=== PATIENT | male | born 1985 | race African-American/Black ===

== ENCOUNTER 2020-11-14 18:54 | Emergency (ER) | payer SELFPAY ==
[~2020-11-14] VITALS: Ht 180.3 cm; Wt 82.5 kg
[2020-11-14] MEDS ORDERED: FAMOTIDINE 20 MG (PEPCID) TABLET PO STA (19:27)
--- NOTE | 2020-11-14 19:28 | ED Cough/URI ---
General Stated Complaint: CHILLS/VOMITING/BODY ACHES/HEADACHE Source: patient Exam Limitations: no limitations History of Present Illness Date Seen by Provider: Nov 14, 2020 Time Seen by Provider: 19:15 Initial Comments Patient arrives ER by private conveyance chief complaint of about 1 to 2 days progressively worsening fever T-max of 102, chills, cough productive of brown sputum, nausea and vomiting. No diarrhea. Epigastric abdominal discomfort. No history of abdominal surgeries. No sick contacts or recent travel outside the [facility]. He did not get Covid vaccination. Patient states he smokes an occasional cigarette in about 3 joints of cannabis daily. He does not use alcohol or any recreational drugs otherwise. Allergies and Home Medications Allergies Coded Allergies: No Known Drug Allergies (Unverified , 11/14/20) Patient Home Medication List Home Medication List Reviewed: Yes Review of Systems Review of Systems Constitutional: chills, fever, malaise EENTM: No ear discharge, No ear pain Respiratory: cough, phlegm, short of breath Cardiovascular: No chest pain, No edema, No palpitations Gastrointestinal: No abdominal pain; nausea, vomiting Genitourinary: No discharge, No dysuria Musculoskeletal: No back pain, No joint pain All Other Systems Reviewed Negative Unless Noted: Yes Past Jeysvvd-Qzhdie-Htuenm Hx Patient Social History Alcohol Use: Denies Use Drug of Choice: Cannabis Smoking Status: Current Someday Smoker Type Used: Cigarettes Physical Exam Vital Signs - First Documented 11/14/20 19:15 Temp 37.6 Pulse 92 Resp 18 B/P (MAP) 144/95 (111) Pulse Ox 100 Capillary Refill : Height: '" Weight: lbs. oz. kg; BMI Method: General Appearance: WD/WN, mild distress (Chilling) Eyes: Bilateral Eye Normal Inspection, Bilateral Eye PERRL, Bilateral Eye EOMI HEENT: PERRL/EOMI Neck: full range of motion, normal inspection Respiratory: lungs clear, normal breath sounds, no respiratory distress (Oxygen saturation 100% on room air, nonlabored breathing 20 breaths/min), no accessory muscle use Cardiovascular: normal peripheral pulses, regular rate, rhythm Gastrointestinal: normal bowel sounds, non tender, soft Extremities: normal range of motion, non-tender, normal capillary refill Neurologic/Psychiatric: alert, normal mood/affect, oriented x 3 Skin: normal color, warm/dry Progress/Results/Core Measures Suspected Sepsis SIRS Temperature: Pulse: Respiratory Rate: Laboratory Tests 11/14/20 19:25: White Blood Count 12.1H Blood Pressure / Mean: Laboratory Tests 11/14/20 19:25: Creatinine 0.84, Platelet Count 193, Total Bilirubin 0.6 Results/Orders Lab Results Laboratory Tests Test 11/14/20 19:25 Range/Units White Blood Count 12.1 H 4.3-11.0 10^3/uL Red Blood Count 6.18 H 4.30-5.52 10^6/uL Hemoglobin 15.4 13.3-17.7 g/dL Hematocrit 46 40-54 % Mean Corpuscular Volume 75 L 80-99 fL Mean Corpuscular Hemoglobin 25 25-34 pg Mean Corpuscular Hemoglobin Concent 33 32-36 g/dL Red Cell Distribution Width 17.9 H 10.0-14.5 % Platelet Count 193 130-400 10^3/uL Mean Platelet Volume 9.0-12.2 fL Immature Granulocyte % (Auto) 0 % Neutrophils (%) (Auto) 72 42-75 % Lymphocytes (%) (Auto) 17 12-44 % Monocytes (%) (Auto) 9 0-12 % Eosinophils (%) (Auto) 1 0-10 % Basophils (%) (Auto) 1 0-10 % Neutrophils # (Auto) 8.7 H 1.8-7.8 10^3/uL Lymphocytes # (Auto) 2.0 1.0-4.0 10^3/uL Monocytes # (Auto) 1.1 H 0.0-1.0 10^3/uL Eosinophils # (Auto) 0.2 0.0-0.3 10^3/uL Basophils # (Auto) 0.1 0.0-0.1 10^3/uL Immature Granulocyte # (Auto) 0.1 0.0-0.1 10^3/uL Sodium Level 138 135-145 MMOL/L Potassium Level 4.2 3.6-5.0 MMOL/L Chloride Level 102 98-107 MMOL/L Carbon Dioxide Level 22 21-32 MMOL/L Anion Gap 14 5-14 MMOL/L Blood Urea Nitrogen 6 L 7-18 MG/DL Creatinine 0.84 0.60-1.30 MG/DL Estimat Glomerular Filtration Rate > 60 BUN/Creatinine Ratio 7 Glucose Level 89 70-105 MG/DL Calcium Level 9.2 8.5-10.1 MG/DL Corrected Calcium 8.9 8.5-10.1 MG/DL Total Bilirubin 0.6 0.1-1.0 MG/DL Aspartate Amino Transf (AST/SGOT) 44 H 5-34 U/L Alanine Aminotransferase (ALT/SGPT) 98 H 0-55 U/L Alkaline Phosphatase 109 40-136 U/L C-Reactive Protein High Sensitivity 0.99 H 0.00-0.50 MG/DL Total Protein 8.0 6.4-8.2 GM/DL Albumin 4.4 3.2-4.5 GM/DL Lipase 19 8-78 U/L Coronavirus 2019 (MELLISA) Negative Not Detecte Micro Results Microbiology 11/14/20 Influenza Types A,B Antigen (KATRINA) - Final, Complete My Orders Orders - RUBY DUFFY Cbc With Automated Diff (11/14/20 19:26) Comprehensive Metabolic Panel (11/14/20 19:) Hs C Reactive Protein (11/14/20 19:) Lipase (11/14/20 19:26) Chest 1 View, Ap/Pa Only (11/14/20 19:26) Blood Culture (11/14/20 19:26) Ed Iv/Invasive Line Start (11/14/20 19:27) Lactated Ringers (Lr 1000 Ml Iv Solution (11/14/20 19:30) Ondansetron Injection (Zofran Injectio (11/14/20 19:30) Lidocaine 2% Viscous 15 Ml (Xylocaine Vi (11/14/20 19:30) Famotidine Tablet (Pepcid Tablet) (11/14/20 19:27) Antacid Suspension (Mylanta Suspension (11/14/20 19:30) Acetaminophen Tablet (Tylenol Tablet) (11/14/20 19:30) Covid 19 Inhouse Test (11/14/20 19:29) Influenza A And B Antigens (11/14/20 19:29) Medications Given in ED Current Medications Medications Dose Ordered Sig/Ronal Route Start Time Stop Time Status Last Admin Dose Admin Acetaminophen 1,000 mg ONCE ONCE PO 11/14/20 19:30 11/14/20 19:31 DC 11/14/20 19:51 1,000 MG Al Hydrox/Mg Hydrox/Simethicone 30 ml ONCE ONCE PO 11/14/20 19:30 11/14/20 19:31 DC 11/14/20 19:50 30 ML Lactated Ringer's 1,000 ml @ 0 mls/hr Q0M ONCE IV 11/14/20 19:30 11/14/20 19:31 DC 11/14/20 19:50 1,000 MLS/HR Lidocaine HCl 15 ml ONCE ONCE PO 11/14/20 19:30 11/14/20 19:31 DC 11/14/20 19:51 15 ML Ondansetron HCl 8 mg ONCE ONCE IVP 11/14/20 19:30 11/14/20 19:31 DC 11/14/20 19:50 8 MG Vital Signs/I&O 11/14/20 11/14/20 19:15 19:51 Temp 37.6 38.0 Pulse 92 Resp 18 B/P (MAP) 144/95 (111) Pulse Ox 100 Capillary Refill : Progress Note #1: Time: 19:31 Progress Note Although his temperature is 99.5 he has a stated history of fever and heart rate in the 90s. This would be sepsis however I suspect a viral etiology considering it is involving upper respiratory, lungs and nausea vomiting/GI tract. Plan to give him some Zofran, IV fluids, get some basic labs including blood cultures and a chest x-ray. We will swab him for COVID-19 and influenza since we had some influenza earlier in the week. After the Zofran will give him a GI cocktail to help him with epigastric pain which I suspect is related to his vomiting. Progress Note #2: Time: 20:48 Progress Note On reexamination his vitals are still fine and his labs are fine. Will allow him to finish his IV fluids and put him out on azithromycin for atypical bacterial pneumonia. Viral still leads in terms of most likely on the differential. Will encourage him to use some Tylenol, Motrin and Zofran for his symptoms. Diagnostic Imaging Diagonstic Imaging: Xray Plain Films/CT/US/NM/MRI: chest Comments [facility]. [place], [place] NAME: NASH OTERO [facility] REC#: [id number] PT STATUS: REG ER : 1985 PHYSICIAN: RUBY DUFFY MD ADMIT DATE: 11/14/20/ER Signed Date of Exam:11/14/20 CHEST 1 VIEW, AP/PA ONLY EXAMINATION: Chest 1 view. HISTORY: Shortness of breath. Fever and cough. COMPARISON: None available. FINDINGS: The lung volumes are normal. No focal consolidation is seen. No large pleural effusion or pneumothorax is seen. The cardiomediastinal silhouette is normal in size and contour. No acute osseous abnormality is seen. IMPRESSION: No acute pleuroparenchymal process. Dictated by: Dictated on workstation # [id number] Dict: 11/14/202013 Trans: 11/14/202017 [id number] Interpreted by: MARY MCDANIEL DO Electronically signed by: MARY MCDANIEL DO 11/14/202017 Reviewed: Reviewed by Me Departure Impression Primary Impression: Primary atypical pneumonia Additional Impression: Gastroenteritis and colitis, viral Disposition: 01 HOME, SELF-CARE Condition: Stable Departure-Patient Inst. Decision time for Depature: 20:55 Referrals: NO,LOCAL PHYSICIAN (PCP/Family) Primary Care Physician Patient Instructions: Pneumonia, Adult ED, Viral Gastroenteritis, Adult (DC) Add. Discharge Instructions: I suspect most likely a virus is causing your symptoms and your body just needs time to fight it off. Your goal is to not become dehydrated in that time. It is also possible you may have atypical bacterial pneumonia so were going to put you on azithromycin. 1 tablet every day starting tomorrow for the next 4 days. The medicine will hang out for several days afterwards in your system. If you are having diarrhea after 24 hours it is okay to take 2 tablets of Imodium/loperamide followed by 1 tablet every 4 hours afterwards that you are still having loose, watery stools. If you are having fever, body aches or chills then you should use Tylenol/acetaminophen 1000 mg every 8 hours as necessary and ibuprofen/Motrin 800 mg every 8 hours as necessary. Vapor rubs such as Vicks or Mentholatum may be helpful for symptoms. Ondansetron/Zofran 1 tablet every 6 hours under the tongue as necessary for nausea or vomiting. Drink lots of fluids. Sports drinks are encouraged. Return to the ER promptly if you are having worsening symptoms such as dehydration or difficulty breathing. Follow-up with your primary care team if your symptoms or not improving in the next 7 to 10 days. Scripts Loperamide HCl (Imodium A-D) 2 Mg Capsule 2 MG PO Q4H PRN for DIARRHEA, #20 CAP 0 Refills Prov: RUBY DUFFY 11/14/20 Azithromycin (Azithromycin) 250 Mg Tablet 250 MG PO DAILY, #4 TAB 0 Refills Prov: RUBY DUFFY 11/14/20 Ondansetron (Ondansetron Odt) 4 Mg Tab.rapdis 4 MG PO Q6H PRN for NAUSEA/VOMITING, #12 TAB 0 Refills Prov: RUBY DUFFY 11/14/20 Work/School Note: Work Release Form Date Seen in the Emergency Department: Nov 14, 2020 Return to Work: Nov 18, 2020 Restrictions: No Restrictions RUBY DUFFY Nov 14, 2020 19:28
[2020-11-14] MEDS ORDERED: LACTATED RINGERS 1,000 ML IV ONE (19:30)
[2020-11-14] MEDS ORDERED: LIDOCAINE 2% VISCOUS 15 ML UDC PO ONE (19:30)
[2020-11-14] MEDS ORDERED: ACETAMINOPHEN 500 MG TAB (TYLENOL) PO ONE (19:30)
[2020-11-14] MEDS ORDERED: ONDANSETRON 4 MG/2 ML (SDV) Z0FRAN IVP ONE (19:30)
[2020-11-14] MEDS ORDERED: ANTACID SUSP 30 ML UDC (MYLANTA) PO ONE (19:30)
[2020-11-14 20:04] LABS: BASOPHILS # (AUTO) 0.1 10^3/uL (0.0-0.1); BASOPHILS % (AUTO) 1 % (0-10)
[2020-11-14 20:06] LABS: EOSINOPHILS # (AUTO) 0.2 10^3/uL (0.0-0.3); EOSINOPHILS % (AUTO) 1 % (0-10); HEMATOCRIT 46 % (40-54); HEMOGLOBIN 15.4 g/dL (13.3-17.7); LYMPHOCYTES % (AUTO) 17 % (12-44); MEAN CORPUSCULAR HEMOGLOBIN 25 pg (25-34); MEAN CORPUSCULAR HGB CONC 33 g/dL (32-36); MEAN CORPUSCULAR VOLUME 75 fL (80-99); MONOCYTES # (AUTO) 1.1 10^3/uL (0.0-1.0); MONOCYTES % (AUTO) 9 % (0-12); NEUTROPHILS # (AUTO) 8.7 10^3/uL (1.8-7.8); NEUTROPHILS % (AUTO) 72 % (42-75); PLATELET COUNT 193 10^3/uL (130-400); WHITE BLOOD COUNT 12.1 10^3/uL (4.3-11.0)
[2020-11-14 20:09] LABS: ALBUMIN 4.4 GM/DL (3.2-4.5)
[2020-11-14 20:10] LABS: CHLORIDE 102 MMOL/L (98-107); POTASSIUM 4.2 MMOL/L (3.6-5.0); SODIUM 138 MMOL/L (135-145)
[2020-11-14 20:11] LABS: CALCIUM 9.2 MG/DL (8.5-10.1)
[2020-11-14 20:12] LABS: GLUCOSE 89 MG/DL (70-105)
[2020-11-14 20:13] LABS: CARBON DIOXIDE 22 MMOL/L (21-32)
[2020-11-14 20:14] LABS: BILIRUBIN,TOTAL 0.6 MG/DL (0.1-1.0)
[2020-11-14 20:15] LABS: ALKALINE PHOSPHATASE 109 U/L (40-136)
[2020-11-14 20:16] LABS: CREATININE SERUM 0.84 MG/DL (0.60-1.30); GFR ESTIMATED > 60
--- NOTE | 2020-11-14 20:16 | Diagnostic Imaging Report ---
EXAMINATION: Chest 1 view. HISTORY: Shortness of breath. Fever and cough. COMPARISON: None available. FINDINGS: The lung volumes are normal. No focal consolidation is seen. No large pleural effusion or pneumothorax is seen. The cardiomediastinal silhouette is normal in size and contour. No acute osseous abnormality is seen. IMPRESSION: No acute pleuroparenchymal process. Dictated by: Dictated on workstation # [id number]
[2020-11-14 20:17] LABS: BUN/CREATININE RATIO 7
[2020-11-14 20:19] LABS: ALANINE AMINOTRANSFERASE 98 U/L (0-55); LIPASE 19 U/L (8-78)
[2020-11-14] MEDS ORDERED: RX-ONDANSETRON 4 MG ODT (ZOFRAN) PPK #4 PO STA (20:54)
[2020-11-14] MEDS ORDERED: LOPE-175 PO (20:59)
[2020-11-14] MEDS ORDERED: ONDA4TAB11 PO (20:59)
[2020-11-14] MEDS ORDERED: AZIT250T12 PO (20:59)
[2020-11-14] MEDS ORDERED: RX-LOPERAMIDE 2 MG (IMODIUM) CAP PPK#4 PO ONE (21:00)
[2020-11-14] MEDS ORDERED: AZITHROMYCIN 250 MG TAB (ZITHROMAX) PO ONE (21:00)
[2020-11-14 21:11] VITALS: BP 115/62
== END 2020-11-14 21:15 | disposition home or self-care (01) ==
LOC: ER 19:02
DX: J18.9 Pneumonia, unspecified organism (principal); A08.4 Viral intestinal infection, unspecified; F17.210 Nicotine dependence, cigarettes, uncomplicated; Z20.822 Contact with and (suspected) exposure to COVID-19
CPT/HCPCS: 71045; 80053; 83690; 85025; 86141; 87040; 87804; 99284; U0002; 36415; 87635

== ENCOUNTER 2021-11-26 18:38 | Emergency (ER) | payer SELFPAY ==
[~2021-11-26] VITALS: Ht 178 cm; Wt 80.7 kg
[~2021-11-26 18:38] MED LIST: AZIT250T12 PO; LOPE-175 PO; ONDA4TAB11 PO
[2021-11-26] MEDS ORDERED: cefTRIAXone 1 GM PRE-MIX 50 ML IV STA (18:53)
--- NOTE | 2021-11-26 18:56 | ED GU-Male ---
General Stated Complaint: DISCHARGE Source: patient Exam Limitations: no limitations History of Present Illness Date Seen by Provider: November 26, 2021 Time Seen by Provider: 18:54 Initial Comments Patient is a 36-year-old male who presents ED with dysuria and penile discharge. Symptoms started yesterday. Noted yellowish discharge with some burning with urination. Had some lower abdominal discomfort but that resolved. Denies of any penile lesions, scrotum pain, scrotal swelling. History of sexual transmitted infection and concern for STD. States he had oral sex with another partner. Patient would like to be treated prophylactically. Denies fever, chills, chest pain, shortness of breath, sore throat, rash, joint pain Allergies and Home Medications Allergies Coded Allergies: No Known Drug Allergies (Unverified , 11/14/20) Patient Home Medication List Home Medication List Reviewed: Yes Azithromycin (Azithromycin) 250 Mg Tablet, 250 MG PO DAILY Prescribed by: RUBY DUFFY on 11/14/202058 Doxycycline Monohydrate (Doxycycline Monohydrate) 100 Mg Capsule, 100 MG PO BID Prescribed by: VIRGINIA DUMONT on 11/26/211919 Loperamide HCl (Imodium A-D) 2 Mg Capsule, 2 MG PO Q4H PRN for DIARRHEA Prescribed by: RUBY DUFFY on 11/14/202058 Ondansetron (Ondansetron Odt) 4 Mg Tab.rapdis, 4 MG PO Q6H PRN for NAUSEA/VOMITING Prescribed by: RUBY DUFFY on 11/14/202058 Review of Systems Review of Systems Constitutional: No chills, No diaphoresis, No weakness EENTM: No blurred vision, No double vision, No mouth pain, No mouth swelling, No throat pain, No throat swelling Respiratory: No cough, No dyspnea on exertion Cardiovascular: No chest pain, No edema Gastrointestinal: No abdominal pain, No nausea, No vomiting Genitourinary: burning, discharge; denies flank pain; pain, urgency Musculoskeletal: No back pain, No joint pain Skin: No see HPI, No change in color, No change in hair/nails All Other Systemes Reviewed Negative Unless Noted: Yes Past Hplettv-Rewfiy-Syzzcv Hx Seasonal Allergies Seasonal Allergies: No Past Medical History Surgeries: Yes Adenoidectomy, Tonsillectomy Respiratory: No Cardiac: No 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 oz. kg; 25.00 BMI Method: General Appearance: WD/WN, no apparent distress HEENT: PERRL/EOMI, normal ENT inspection, TMs normal, pharynx normal Neck: non-tender, full range of motion Cardiovascular: regular rate, rhythm, no edema, no gallop, no JVD Respiratory: chest non-tender, lungs clear, normal breath sounds, no respiratory distress Gastrointestinal: normal bowel sounds, non tender, soft, no organomegaly Back: normal inspection, no CVA tenderness Extremities: normal range of motion, non-tender, normal inspection, no pedal edema, no calf tenderness Neurologic/Psychiatric: doll dresser II-XII nml as tested, no motor/sensory deficits, alert, normal mood/affect, oriented x 3 Skin: normal color, warm/dry Progress/Results/Core Measures Suspected Sepsis SIRS Temperature: Pulse: Respiratory Rate: Blood Pressure / Mean: Results/Orders Lab Results Laboratory Tests Test 11/26/21 19:00 Range/Units Urine Color YELLOW Urine Clarity CLEAR Urine pH 6.5 5-9 Urine Specific [place] <=1.005 1.016-1.022 Urine Protein NEGATIVE NEGATIVE Urine Glucose (UA) NEGATIVE NEGATIVE Urine Ketones NEGATIVE NEGATIVE Urine Nitrite NEGATIVE NEGATIVE Urine Bilirubin NEGATIVE NEGATIVE Urine Urobilinogen 0.2 < = 1.0 MG/DL Urine Leukocyte Esterase 1+ H NEGATIVE Urine RBC (Auto) 1+ H NEGATIVE Urine RBC NONE /HPF Urine WBC 10-25 H /HPF Urine Squamous Epithelial Cells NONE /HPF Urine Renal Epithelial Cells NONE /HPF Urine Crystals NONE /LPF Urine Bacteria TRACE /HPF Urine Casts NONE /LPF Urine Mucus NEGATIVE /LPF Urine Culture Indicated NO My Orders Orders - GERALD LEACH Ua Culture If Indicated (11/26/21 18:41) Neis Gary Dna Urine Test (11/26/21 18:41) Chlamydia Trachomatis Urine (11/26/21 18:41) Ceftriaxone 1 Gm Pre-Mix (Rocephin 1 Gm (11/26/21 18:53) Ceftriaxone (Rocephin) (11/26/21 19:00) Lidocaine 1% Inj 20 Ml (Xylocaine 1% Inj (11/26/21 19:00) Medications Given in ED Current Medications Medications Dose Ordered Sig/Ronal Route Start Time Stop Time Status Last Admin Dose Admin Ceftriaxone Sodium 500 mg ONCE ONCE IM 11/26/21 19:00 11/26/21 19:01 DC 11/26/21 19:10 500 MG Lidocaine HCl 1 ml ONCE ONCE INJ 11/26/21 19:00 11/26/21 19:01 DC 11/26/21 19:10 1 ML Vital Signs/I&O 11/26/21 11/26/21 18:49 19:24 Temp 35.9 35.9 Pulse 89 92 Resp 18 18 B/P (MAP) 131/101 (111) 110/90 Capillary Refill : Departure Communication (PCP) Patient concern for UTI. Sexual intercourse. Urinalysis concerning for infection. Was treated with Rocephin IM shot here. Discharged with doxycycline. No sex intercourse for the next 7 days. Make sure all partners are treated. If concern for other sexual transmitted infection to follow-up the health department. Denies of any scrotum pain, scrotum swelling or lesions around the genitals Impression Primary Impression: Concern about STD in male without diagnosis Disposition: 01 HOME, SELF-CARE Condition: Stable Departure-Patient Inst. Decision time for Depature: 19:20 Referrals: NO,LOCAL PHYSICIAN (PCP/Family) Primary Care Physician Patient Instructions: Urinary Tract Infection, Adult (DC) Scripts Doxycycline Monohydrate (Doxycycline Monohydrate) 100 Mg Capsule 100 MG PO BID for 7 Days, #14 CAP Prov: GERALD LEACH 11/26/21 GERALD LEACH November 26, 2021 18:56
[2021-11-26] MEDS ORDERED: LIDOCAINE 1% INJ 20 ML VIAL INJ ONE (19:00)
[2021-11-26] MEDS ORDERED: cefTRIAXone 500 MG/5 ML ML IM ONE (19:00)
[2021-11-26 19:08] LABS: BILIRUBIN,URINE NEGATIVE (NEGATIVE); CLARITY,URINE CLEAR; COLOR,URINE YELLOW; GLUCOSE, URINE (UA) NEGATIVE (NEGATIVE); KETONES,URINE NEGATIVE (NEGATIVE); LEUKOCYTE ESTERASE ,URINE 1+ (NEGATIVE); NITRITE,URINE NEGATIVE (NEGATIVE); PH,URINE 6.5 (5-9); PROTEIN,URINE NEGATIVE (NEGATIVE)
[2021-11-26 19:16] LABS: BACTERIA,URINE TRACE /HPF
[2021-11-26] MEDS ORDERED: DOXY-311 PO (19:20)
[2021-11-26 19:24] VITALS: BP 110/90
== END 2021-11-26 19:26 | disposition home or self-care (01) ==
LOC: EDUNIT# 18:38 → ER 18:41
DX: Z11.3 Encounter for screening for infections with a predominantly sexual mode of transmission (principal)
CPT/HCPCS: 36415; 81000; 87491; 87591; 99284

== ENCOUNTER 2022-07-25 13:37 | Emergency (ER) | payer SELFPAY ==
[~2022-07-25] VITALS: Ht 180 cm; Wt 77.1 kg
[~2022-07-25 13:37] MED LIST changes: +DOXY-444 PO
--- NOTE | 2022-07-25 13:49 | ED Cough/URI ---
General Stated Complaint: SWEATING/CHILLS/VOMITING/COUGH/HEADACHE/DIARRHEA Source: patient Exam Limitations: no limitations (CORNELL ALEXANDRA APRN) History of Present Illness Date Seen by Provider: Jul 25, 2022 Time Seen by Provider: 13:49 Initial Comments 37 y/o male presents today with c/o headache, body aches, cough, congestion, sore throat, n/v/d, chills. Symptoms started yesterday, worse today. Has not taken anything OTC. Timing/Duration: yesterday, getting worse Severity/Quality: dry cough Prior Episodes/Possible Cause: illness exposure Associated Symptoms: cough, fever/chills, headache, muscle aches, nasal congestion, nasal drainage, sore throat (CORNELL ALEXANDRA APRN) Allergies and Home Medications Allergies Coded Allergies: No Known Drug Allergies (Unverified , 11/14/20) Patient Home Medication List Home Medication List Reviewed: Yes (CORNELL ALEXANDRA APRN) Azithromycin (Azithromycin) 250 Mg Tablet, 250 MG PO DAILY Prescribed by: RUBY DUFFY on 11/14/202058 Doxycycline Monohydrate (Doxycycline Monohydrate) 100 Mg Capsule, 100 MG PO BID Prescribed by: VIRGINIA DUMONT on 11/26/211919 Loperamide HCl (Imodium A-D) 2 Mg Capsule, 2 MG PO Q4H PRN for DIARRHEA Prescribed by: RUBY DUFFY on 11/14/202058 Ondansetron (Ondansetron Odt) 4 Mg Tab.rapdis, 4 MG PO Q6H PRN for NAUSEA/VOMITING Prescribed by: RUBY DUFFY on 11/14/202058 Ondansetron (Ondansetron Odt) 4 Mg Tab.rapdis, 4 MG SL Q4H PRN for NAUSEA/VOMITING Prescribed by: Cornell Alexandra on 07/25/22 1528 Review of Systems Review of Systems Constitutional: chills; No dizziness; fever, malaise; No weakness EENTM: nose congestion, throat pain; No ear discharge, No ear pain, No nose pain, No throat swelling Respiratory: cough; No dyspnea on exertion, No phlegm, No short of breath, No wheezing Cardiovascular: no symptoms reported Gastrointestinal: No abdominal pain; diarrhea; No hematemesis, No heartburn, No loss of appetite; nausea, vomiting Genitourinary: no symptoms reported Musculoskeletal: No back pain, No joint pain, No joint swelling; muscle pain; No muscle twitching, No muscle weakness, No neck pain Skin: no symptoms reported Hematologic/Lymphatic: No Symptoms Reported Immunological/Allergic: no symptoms reported (CORNELL ALEXANDRA APRN) Past Cqifclj-Nxskbr-Bxgkli Hx Patient Social History Tobacco Use?: No Substance use?: Yes Substance type: Marijuana Alcohol Use?: No (CORNELL ALEXANDRA APRN) Seasonal Allergies Seasonal Allergies: No (CORNELL ALEXANDRA APRN) Past Medical History Surgeries: Yes Adenoidectomy, Tonsillectomy Respiratory: No Cardiac: No 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 oz. kg; 25.00 BMI Method: General Appearance: WD/WN, no apparent distress Eyes: Bilateral Eye Normal Inspection, Bilateral Eye PERRL, Bilateral Eye EOMI HEENT: PERRL/EOMI, TMs normal, pharynx normal, other (nares congested, clear rhinorrhea) Neck: non-tender, full range of motion, supple, normal inspection Respiratory: chest non-tender, lungs clear, normal breath sounds, no respiratory distress Cardiovascular: normal peripheral pulses, regular rate, rhythm, no edema Gastrointestinal: normal bowel sounds, non tender, soft, no organomegaly Extremities: normal range of motion, non-tender, normal inspection Neurologic/Psychiatric: alert, normal mood/affect Skin: normal color, warm/dry Lymphatic: no adenopathy (CORNELL ALEXANDRA APRN) Progress/Results/Core Measures Suspected Sepsis SIRS Temperature: Pulse: Respiratory Rate: Blood Pressure / Mean: (CORNELL ALEXANDRA APRN) Results/Orders Lab Results Laboratory Tests Test 12/31/22 13:54 Range/Units Influenza Type A (RT-PCR) Detected H Not Detecte Influenza Type B (RT-PCR) Not Detected Not Detecte SARS-CoV-2 RNA (RT-PCR) Not Detected Not Detecte (BENIGNO HERNANDEZ MD) My Orders Orders - BENIGNO HERNANDEZ MD Covid 19 Inhouse Test (07/25/22 13:43) Influenza A And B By Pcr (07/25/22 13:43) (BENIGNO HERNANDEZ MD) Vital Signs/I&O 07/25/22 07/25/22 07/25/22 13:50 13:50 15:46 Temp 37.1 Pulse 88 81 B/P (MAP) 117/100 (106) 115/89 Pulse Ox 99 97 O2 Delivery Room Air Room Air (BENIGNO HERNANDEZ MD) Vital Signs/I&O Capillary Refill : (CORNELL ALEXANDRA APRN) Departure Impression Primary Impression: Influenza A Disposition: 01 HOME, SELF-CARE Condition: Stable Departure-Patient Inst. Decision time for Depature: 15:25 (CORNELL ALEXANDRA APRN) Referrals: [facility],LOCAL PHYSICIAN (PCP) Primary Care Physician Patient Instructions: Flu, Adult (DC) Add. Discharge Instructions: Rest, push fluids. Tylenol and motrin as needed for fever, body aches, headache. Over the counter medications as needed for cough, congestion, sore throat. Isolate at home until fever free for 24 hours without fever reducing medications. Follow up with new/worsening concerns Scripts Ondansetron (Ondansetron Odt) 4 Mg Tab.rapdis 4 MG SL Q4H PRN for NAUSEA/VOMITING, #8 TAB 0 Refills Prov: CORNELL ALEXANDRA APRN 07/25/22 ATTENDING PHYSICIAN NOTE: I was physically present as attending physician in the emergency department during the care of this patient, but I was not directly involved in the decision making or delivery of care for this patient. (BENIGNO HERNANDEZ MD) CORNELL ALEXANDRA APRN Jul 25, 2022 13:49 BENIGNO HERNANDEZ MD Jul 28, 2022 18:51
[2022-07-25] MEDS ORDERED: IBUPROFEN 800 MG (MOTRIN) TAB PO ONE (15:15)
[2022-07-25] MEDS ORDERED: ONDANSETRON 4 MG (ZOFRAN) ORAL DISSOLVE TAB PO ONE (15:15)
[2022-07-25] MEDS ORDERED: ACETAMINOPHEN 325 MG TABLET PO ONE (15:15)
[2022-07-25] MEDS ORDERED: ONDA4TAB11 SL (15:28)
[2022-07-25 15:46] VITALS: BP 115/89
== END 2022-07-25 15:44 | disposition home or self-care (01) ==
LOC: EDUNIT# 13:37 → ER 13:40
DX: J10.1 Influenza due to other identified influenza virus with other respiratory manifestations (principal); Z20.822 Contact with and (suspected) exposure to COVID-19; Z28.310 Unvaccinated for COVID-19
CPT/HCPCS: 87636; 99283

== ENCOUNTER 2022-12-01 15:58 | Emergency (ER) | payer SELFPAY ==
[~2022-12-01] VITALS: Ht 180 cm; Wt 88.0 kg
[~2022-12-01 15:58] MED LIST changes: +ONDA4TAB11 SL
--- NOTE | 2022-12-01 16:36 | ED Upper Extremity ---
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 INJURY OCCURED LAST NIGHT Source: patient Exam Limitations: no limitations History of Present Illness Date Seen by Provider: December 01, 2022 Time Seen by Provider: 16:25 Initial Comments 37-year-old male presents to the ER with complaints of left thumb pain. States that he fell at work last night and his thumb bent backwards. Reports swelling started last night. Reports pain with movement. Denies any past medical history, does not taking medications regularly. Patient reports he has been taking 400 mg of ibuprofen which has not provided relief. Allergies and Home Medications Allergies Coded Allergies: No Known Drug Allergies (Unverified , 11/14/20) Patient Home Medication List Home Medication List Reviewed: Yes Azithromycin (Azithromycin) 250 Mg Tablet, 250 MG PO DAILY Prescribed by: RUBY DUFFY on 11/14/202058 Doxycycline Monohydrate (Doxycycline Monohydrate) 100 Mg Capsule, 100 MG PO BID Prescribed by: VIRGINIA DUMONT on 11/26/211919 Loperamide HCl (Imodium A-D) 2 Mg Capsule, 2 MG PO Q4H PRN for DIARRHEA Prescribed by: RUBY DUFFY on 11/14/202058 Ondansetron (Ondansetron Odt) 4 Mg Tab.rapdis, 4 MG PO Q6H PRN for NAUSEA/VOMITING Prescribed by: RUBY DUFFY on 11/14/202058 Ondansetron (Ondansetron Odt) 4 Mg Tab.rapdis, 4 MG SL Q4H PRN for NAUSEA/VOMI TING Prescribed by: Lesley Tee on 07/25/22 1528 Review of Systems Constitutional: no symptoms reported Musculoskeletal: joint pain, joint swelling Past Vzshpkk-Bgbwqa-Spcqyj Hx Patient Social History Tobacco Use?: Yes Tobacco type used: Cigarettes Substance use?: Yes Substance type: Marijuana Substance frequency: Once in a while Seasonal Allergies Seasonal Allergies: No Past Medical History Surgery/Hospitalization HX: T&A, HX OF SEIZURES YEARS AGO-NO MEDS Surgeries: Yes Adenoidectomy, Tonsillectomy Respiratory: No Cardiac: No Neurological: Yes (FEBRILE SEIZURES A CHILD) Genitourinary: No Gastrointestinal: No Musculoskeletal: No Endocrine: No HEENT: No Cancer: No Psychosocial: No Integumentary: No Blood Disorders: No Physical Exam Vital Signs Vital Signs - First Documented 12/01/22 16:07 Temp 36.9 Pulse 88 Resp 18 B/P (MAP) 126/84 (98) Pulse Ox 96 O2 Delivery Room Air Capillary Refill : Less Than 3 Seconds Height, Weight, BMI Height: '" Weight: lbs. oz. kg; 27.00 BMI Method: General Appearance: WD/WN, no apparent distress Neck: supple, normal inspection Cardiovascular: regular rate, rhythm Respiratory: lungs clear, normal breath sounds, no respiratory distress, no accessory muscle use Hand: Left (Cap refill less than 2 seconds, sensation intact distally), limited ROM, soft tissue tenderness, swelling Neurologic/Psychiatric: alert, normal mood/affect Skin: normal color, warm/dry Progress/Results/Core Measures Results/Orders My Orders Vital Signs/I&O Blood Pressure Mean: 98 Progress Progress Note : Progress Note Patient seen and evaluated, resting comfortably in bed, no acute distress. Based on exam and symptoms, x-ray of left hand ordered. 1656 x-ray reviewed, negative for acute findings. Results discussed with patient. Discharge instructions and return precautions provided. Diagnostic Imaging Diagonstic Imaging: Xray Plain Films/CT/US/NM/MRI: hand Comments [facility], [place] NAME: NASH OTERO [facility] REC#: [id number] PT STATUS: REG ER : 1985 PHYSICIAN: TAHIR ROSARIO APRN ADMIT DATE: 12/01/22/ER Draft Date of Exam:12/01/22 HAND, LEFT, 3 VIEWS CLINICAL INDICATION: Patient with hand pain. EXAM: X-ray left hand, 3 views. COMPARISON: None. FINDINGS: There is no acute fracture or dislocation. There is no significant bone or joint abnormality. Carpal bones show no significant abnormality. IMPRESSION: Unremarkable X-ray of the left hand. Dictated on workstation # [id number] Dict: 12/01/22 164 Trans: 12/01/22 1645 [id number] Interpreted by: MATEUSZ HUTCHISON MD Electronically signed by: Departure Impression Primary Impression: Contusion of hand Disposition: 01 HOME, SELF-CARE Condition: Stable Departure-Patient Inst. Decision time for Depature: 16:58 Referrals: NO,LOCAL PHYSICIAN (PCP/Family) Primary Care Physician Patient Instructions: Hand Pain (DC) Add. Discharge Instructions: You may take 800 mg of ibuprofen every 8 hours with food as needed for pain. You may also take 1000 mg of Tylenol every 8 hours as needed for pain. You may use ice for 20 minutes at a time several times a day for the next couple of days. Return for severe pain, inability to move hand, or any other new, concerning, or worsening symptoms. All discharge instructions reviewed with patient and/or family. Voiced understanding. Work/School Note: Work Release Form Date Seen in the Emergency Department: December 01, 2022 Return to Work: December 03, 2022 Restrictions: No Restrictions TAHIR ROSARIO APRN December 01, 2022 16:36
--- NOTE | 2022-12-01 16:45 | Diagnostic Imaging Report ---
CLINICAL INDICATION: Patient with hand pain. EXAM: X-ray left hand, 3 views. COMPARISON: None. FINDINGS: There is no acute fracture or dislocation. There is no significant bone or joint abnormality. Carpal bones show no significant abnormality. IMPRESSION: Unremarkable X-ray of the left hand. Dictated by: Dictated on workstation # [id number]
[2022-12-01 17:10] VITALS: BP 130/85
== END 2022-12-01 17:10 | disposition home or self-care (01) ==
LOC: EDUNIT# 15:58 → ER 15:59
DX: S60.222A Contusion of left hand, initial encounter (principal); F17.210 Nicotine dependence, cigarettes, uncomplicated; W01.0XXA Fall on same level from slipping, tripping and stumbling without subsequent striking against object, initial encounter; Y92.59 Other trade areas as the place of occurrence of the external cause; Y99.0 Civilian activity done for income or pay
CPT/HCPCS: 73130

== ENCOUNTER 2023-07-02 13:31 | Emergency (ER) | payer OTHER ==
[~2023-07-02] VITALS: Ht 180 cm; Wt 86.0 kg
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
[2023-07-02 14:12] LABS: BASOPHILS # (AUTO) 0.1 10^3/uL (0.0-0.1); BASOPHILS % (AUTO) 0 % (0-10); EOSINOPHILS # (AUTO) 0.1 10^3/uL (0.0-0.3); EOSINOPHILS % (AUTO) 1 % (0-10); HEMATOCRIT 43 % (40-54); HEMOGLOBIN 14.5 g/dL (13.3-17.7); LYMPHOCYTES # (AUTO) 4.6 10^3/uL (1.0-4.0); LYMPHOCYTES % (AUTO) 35 % (12-44); MEAN CORPUSCULAR HEMOGLOBIN 25 pg (25-34); MEAN CORPUSCULAR HGB CONC 34 g/dL (32-36); MEAN CORPUSCULAR VOLUME 74 fL (80-99); MEAN PLATELET VOLUME 10.3 fL (9.0-12.2); MONOCYTES # (AUTO) 0.7 10^3/uL (0.0-1.0); MONOCYTES % (AUTO) 6 % (0-12); NEUTROPHILS # (AUTO) 7.5 10^3/uL (1.8-7.8); NEUTROPHILS % (AUTO) 57 % (42-75); PLATELET COUNT 279 10^3/uL (130-400); WHITE BLOOD COUNT 13.1 10^3/uL (4.3-11.0)
[2023-07-02 14:24] LABS: ALBUMIN 4.2 GM/DL (3.2-4.5); CHLORIDE 109 MMOL/L (98-107); POTASSIUM 3.9 MMOL/L (3.6-5.0); SODIUM 141 MMOL/L (135-145)
[2023-07-02 14:25] LABS: CALCIUM 9.6 MG/DL (8.5-10.1)
[2023-07-02 14:26] LABS: GLUCOSE 63 MG/DL (70-105); TOTAL PROTEIN 7.6 GM/DL (6.4-8.2)
[2023-07-02 14:27] LABS: CARBON DIOXIDE 24 MMOL/L (21-32)
[2023-07-02 14:28] LABS: BILIRUBIN,TOTAL 0.4 MG/DL (0.1-1.0)
[2023-07-02 14:30] LABS: ALKALINE PHOSPHATASE 76 U/L (40-136); CREATININE SERUM 0.88 MG/DL (0.60-1.30); GFR ESTIMATED 114
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
[2023-07-02 14:31] LABS: BUN/CREATININE RATIO 16; PROTHROMBIN TIME PATIENT 13.5 SEC (12.2-14.7)
[2023-07-02 14:33] LABS: ALANINE AMINOTRANSFERASE 16 U/L (0-55)
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
[2023-07-02 15:13] VITALS: BP 130/91
== END 2023-07-02 15:10 | disposition home or self-care (01) ==
LOC: EDUNIT# 13:31 → ER 13:35
DX: S20.212A Contusion of left front wall of thorax, initial encounter (principal); M47.812 Spondylosis without myelopathy or radiculopathy, cervical region; F17.200 Nicotine dependence, unspecified, uncomplicated; V43.62XA Car passenger injured in collision with other type car in traffic accident, initial encounter; Y92.410 Unspecified street and highway as the place of occurrence of the external cause
CPT/HCPCS: 36415; 70450; 71101; 72125; 72131; 80053; 83735; 84484; 85025; 85610; 85730; 93005; 93041